=== PATIENT | male | born 1980 ===

== ENCOUNTER 2025-01-29 06:07 | Day surgery (SDC) | payer BC ==
[~2025-01-29 06:07] MED LIST: Propofol 200 MG/20 ML SDV ONE
[2025-01-29] MEDS: Lactated Ringers 1,000 ML IV SCH (06:38)
== END 2025-01-29 09:24 | disposition home or self-care (01) ==
LOC: DL.ENDO 06:07
PROVIDERS: ATTEND Internal Medicine Gastroenterology
DX: Z12.11 Encounter for screening for malignant neoplasm of colon (principal); K64.8 Other hemorrhoids; E66.9 Obesity, unspecified; Z68.29 Body mass index [BMI] 29.0-29.9, adult; Z79.899 Other long term (current) drug therapy
CPT/HCPCS: J7120